=== PATIENT | female | born 1985 | race African-American/Black ===

== ENCOUNTER 2018-03-14 17:53 | Emergency (ER) | payer OTHER ==
[~2018-03-14] VITALS: Ht 162.6 cm; Wt 90.0 kg
[~2018-03-14 17:53] MED LIST: BACTRIM DS1 TAB PO; CEPHALEXIN500 MG PO; CIPRO500 MG OR; CIPROFLOXACN500 MG PO; MACRODANTIN100 MG PO; NO HOME MEDS; PYRIDIUM200 MG OR; PYRIDIUM200 MG PO
[2018-03-14 18:57] VITALS: BP 126/79
== END 2018-03-14 18:57 | disposition home or self-care (01) | DRG 605 ==
LOC: ED 17:53
DX: S80.02XA Contusion of left knee, initial encounter (principal); W22.09XA Striking against other stationary object, initial encounter; Y92.89 Other specified places as the place of occurrence of the external cause; Y99.0 Civilian activity done for income or pay

== ENCOUNTER 2021-03-11 17:35 | Emergency (ER) | payer BC ==
[~2021-03-11] VITALS: Ht 162.6 cm; Wt 79.1 kg
[2021-03-11 20:17] LABS: URINE BILIRUBIN - DIPSTICK NEGATIVE (NEGATIVE); URINE BLOOD DIPSTICK NEGATIVE (NEGATIVE); URINE COLOR YELLOW; URINE GLUCOSE - DIPSTICK NEGATIVE (NEGATIVE); URINE KETONE NEGATIVE (NEGATIVE); URINE LEUK ESTERASE NEGATIVE (NEGATIVE); URINE NITRITE - DIPSTICK NEGATIVE (Negative); URINE PROTEIN - DIPSTICK NEGATIVE (NEG-TRACE); URINE UROBILINOGEN - DIPSTICK 0.2 E.U./dL (0.2)
[2021-03-11] MEDS ORDERED: ZPAK PO (20:48)
[2021-03-11 21:27] VITALS: BP 128/92
== END 2021-03-11 21:35 | disposition home or self-care (01) | DRG 179 ==
LOC: ED 17:35
PROVIDERS: Emergency Medicine
DX: U07.1 COVID-19 (principal)